=== PATIENT | female | born 1970 | race Caucasian/White ===

== ENCOUNTER → 2016-10-11 | Outpatient (CLI) | payer OTHER ==
[~2016-10-11] MED LIST: MULTIVITAMIN1 EAC1 PO; PYRIDIUM200 MG PO; ZOFRAN4 MG PO
== END | disposition home or self-care (01) ==
LOC: CDC 09:30
DX: R94.31 Abnormal electrocardiogram [ECG] [EKG] (principal); I45.2 Bifascicular block; C50.912 Malignant neoplasm of unspecified site of left female breast
CPT/HCPCS: 93000

== ENCOUNTER 2016-10-30 06:39 | Day surgery (SDC) | payer OTHER ==
[~2016-10-30] VITALS: Ht 162.6 cm; Wt 73.0 kg
[~2016-10-30 06:39] MED LIST changes: +PAMPRIN MAX1 TABLET PO
[2016-10-30 06:59] VITALS: BP 154/85
[2016-10-30 15:23] VITALS: BP 143/79
[2016-10-30 19:25] VITALS: BP 124/72
[2016-10-30 23:05] VITALS: BP 118/61
[2016-10-31 04:41] VITALS: BP 124/64
[2016-10-31 07:50] VITALS: BP 116/73
[2016-10-31] MEDS ORDERED: TRAMADOL HCL50 MG PO (09:45)
== END 2016-10-31 12:23 | disposition home or self-care (01) ==
LOC: SDC 06:39 → NUC 08:00 → SDC 08:00 → 2EASTP 13:42 → 2SOUTH 13:42 → 2EASTP 15:18
DX: C50.912 Malignant neoplasm of unspecified site of left female breast (principal); C77.3 Secondary and unspecified malignant neoplasm of axilla and upper limb lymph nodes; J45.909 Unspecified asthma, uncomplicated
CPT/HCPCS: 78195; 78999; 88305; 88307; 88331; A9541; G0378; J0690; J1170; J2405; J3010; J7120

== ENCOUNTER 2017-09-19 07:32 | Day surgery (SDC) | payer OTHER ==
[~2017-09-19] VITALS: Ht 162.6 cm; Wt 73.5 kg
[~2017-09-19 07:32] MED LIST changes: +EFFEXOR75 MG PO; +NOLVADEX20 MG PO; +OMNICEF300 MG PO; +TESSALON200 MG PO; +TOVIAZ4 MG PO; +TRAMADOL HCL50 MG PO; +ULTRAM50 MG PO
[2017-09-19 08:07] VITALS: BP 157/82
[2017-09-19] MEDS ORDERED: IBUPROFEN800 MG PO (13:28)
[2017-09-19] MEDS ORDERED: ENDOCET 5-3251 EACH PO (13:28)
[2017-09-19 15:35] VITALS: BP 120/70
[2017-09-19 15:55] VITALS: BP 135/66
[2017-09-19 16:25] VITALS: BP 130/66
[2017-09-19 20:10] VITALS: BP 113/56
== END 2017-09-19 20:30 | disposition home or self-care (01) ==
LOC: SDC 07:32
PROC: 0TN64ZZ Release Right Ureter, Percutaneous Endoscopic Approach (ICD-10-PCS; principal; 2017-09-19)
PROC: 0UT94ZZ Resection of Uterus, Percutaneous Endoscopic Approach (ICD-10-PCS; principal; 2017-09-19)
PROC: 0TN74ZZ Release Left Ureter, Percutaneous Endoscopic Approach (ICD-10-PCS; principal; 2017-09-19)
PROC: 0TJB8ZZ Inspection of Bladder, Via Natural or Artificial Opening Endoscopic (ICD-10-PCS; principal; 2017-09-19)
PROC: 0UT74ZZ Resection of Bilateral Fallopian Tubes, Percutaneous Endoscopic Approach (ICD-10-PCS; principal; 2017-09-19)
PROC: 0UT24ZZ Resection of Bilateral Ovaries, Percutaneous Endoscopic Approach (ICD-10-PCS; principal; 2017-09-19)
DX: D25.9 Leiomyoma of uterus, unspecified (principal); N83.201 Unspecified ovarian cyst, right side; Z85.3 Personal history of malignant neoplasm of breast; K66.0 Peritoneal adhesions (postprocedural) (postinfection); Z87.891 Personal history of nicotine dependence; R94.31 Abnormal electrocardiogram [ECG] [EKG]
CPT/HCPCS: 88160; 88173; 88307; J0131; J0690; J1100; J1170; J1940; J2250; J3010; Q0175

== ENCOUNTER 2017-09-30 20:21 | Emergency (ER) | payer OTHER ==
[~2017-09-30] VITALS: Ht 162.6 cm; Wt 73.6 kg
[~2017-09-30 20:21] MED LIST changes: +ENDOCET 5-3251 EACH PO; +IBUPROFEN800 MG PO
[2017-09-30 21:03] LABS: HEMATOCRIT 32.6 % (36.0-46.0); HEMOGLOBIN 10.9 G/DL (11.9-15.5); MCH 29.8 PG (29.0-34.0); MCHC 33.4 G/DL (30.0-36.0); MCV 89.1 FL (83-99); RBC DIS.WIDTH-CV 13.2 % (11.8-14.6); RBC DIS.WIDTH-SD 42.7 % (39-53); RED BLOOD COUNT 3.66 M/uL (3.80-5.20); WHITE BLOOD COUNT 7.1 K/uL (4.1-10.2)
[2017-09-30 21:08] LABS: CHLORIDE 105 mEq/L (99-109); POTASSIUM 4.3 mEq/L (3.7-5.4); SODIUM 138 mEq/L (136-147)
[2017-09-30 21:10] LABS: GLUCOSE 142 mg/dL (70-99); TOTAL PROTEIN 6.8 g/dL (6.4-8.3)
[2017-09-30 21:12] LABS: TOTAL BILIRUBIN 0.3 mg/dL (0.0-1.0)
[2017-09-30 21:14] LABS: ALKALINE PHOSPHATASE 62 IU/L (3-129); CREATININE 0.8 mg/dL (0.6-1.3); GFR ESTIMATE (CALCULATED) > 59 mL/min/
[2017-09-30 21:15] LABS: UREA NITROGEN (BUN) 14 mg/dL (9-23)
[2017-09-30 21:16] LABS: AST (GOT) 11 IU/L (2-34)
[2017-09-30 21:17] LABS: ALT (GPT) 7 IU/L (3-49)
[2017-09-30 21:23] LABS: QUANTITATIVE HCG < 4.0 MIU/ML
[2017-09-30 21:37] LABS: PLATELET COUNT 318 K/uL (156-360)
[2017-10-01 00:05] LABS: APPEARANCE SL.HAZY ((CLEAR)); BILIRUBIN NEGATIVE; BLOOD MODERATE; COLOR YELLOW ((YELLOW)); GLUCOSE (STRIP) NEGATIVE; KETONES NEGATIVE; LEUKOCYTES LARGE; NITRITE NEGATIVE; PROTEIN (STRIP) NEGATIVE; UROBILINOGEN 0.2 MG/DL (0.2-1.0)
[2017-10-01 00:11] LABS: BACTERIA RARE /HPF; EPITHELIAL CELLS RARE /HPF; MUCUS TRACE /LPF; UCUL ADDED? YES; WHITE BLOOD CELLS 40-50 /HPF (0-5)
[2017-10-01] MEDS ORDERED: CLEOCIN300 MG PO (04:32)
[2017-10-01 04:54] VITALS: BP 125/82
== END 2017-10-01 04:55 | disposition home or self-care (01) ==
LOC: EME 20:21
DX: L76.34 Postprocedural seroma of skin and subcutaneous tissue following other procedure (principal); Y83.9 Surgical procedure, unspecified as the cause of abnormal reaction of the patient, or of later complication, without mention of misadventure at the time of the procedure; R10.30 Lower abdominal pain, unspecified; N39.0 Urinary tract infection, site not specified; Z90.710 Acquired absence of both cervix and uterus; J45.909 Unspecified asthma, uncomplicated; Z85.9 Personal history of malignant neoplasm, unspecified; Z90.10 Acquired absence of unspecified breast and nipple; Z88.5 Allergy status to narcotic agent; Z87.891 Personal history of nicotine dependence
CPT/HCPCS: 74177; 80053; 81003; 84702; 85027; 87086; 99281; 99285; J1885; J3010; J7030

== ENCOUNTER 2018-03-12 18:03 | Emergency (ER) | payer OTHER ==
[~2018-03-12] VITALS: Ht 162.6 cm; Wt 75.2 kg
[~2018-03-12 18:03] MED LIST changes: +CLEOCIN300 MG PO
[2018-03-12 22:18] VITALS: BP 142/94
== END 2018-03-12 22:18 | disposition home or self-care (01) ==
LOC: EME 18:03
DX: M79.671 Pain in right foot (principal); M79.644 Pain in right finger(s); J45.909 Unspecified asthma, uncomplicated; Z85.3 Personal history of malignant neoplasm of breast; Z90.12 Acquired absence of left breast and nipple; Z90.710 Acquired absence of both cervix and uterus; Z87.891 Personal history of nicotine dependence; Z88.5 Allergy status to narcotic agent
CPT/HCPCS: 73140; 73630; 99281; 99283